=== PATIENT | female | born 1985 | race Caucasian/White ===

== ENCOUNTER 2017-09-23 07:33 | Emergency (ER) | payer OTHER ==
[2017-09-23] MEDS ORDERED: SODIUM CHLORIDE 0.9% 1,000 ML IV ONE (07:56)
[2017-09-23] MEDS ORDERED: MAG HYDROX/AL HYDROX/SIMETH 30 ML UDC PO STA (07:56)
[2017-09-23] MEDS ORDERED: LIDOCAINE VISCOUS 2% 15 ML UDC MM STA (07:57)
--- NOTE | 2017-09-23 07:59 | ED Physician Documentation ---
PD HPI ABD PAIN - Stated complaint Stated Complaint: ABD PX - Chief complaint Chief Complaint: Abd Pain - History obtained from History obtained from: Patient, Family - History of Present Illness Timing - onset: Enter time (1230), Last night Timing - duration: Hours Timing - details: Abrupt onset, Still present Quality: Sharp, Pain Location: Epigastric Improved by: Laying still, Position Worsened by: Breathing, Position, Palpation Associated symptoms: Nausea, Vomiting. No: Fever, Diarrhea, Constipation, Melena, Hematochezia Similar symptoms before: Has not had sx before Recently seen: Not recently seen - Additional information Additional information: 32 y/o previously healthy female has developed epigastric pain last night with nausea and vomiting. She has not had this previously and she denies use of ibuprofen or aleve. She denies any alcohol use. She is somewhat more comfortable if she is leaning forward slightly and she is getting the pain coming in waves. 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 - Present Medications Home Medications: Ambulatory Orders Medication Instructions Recorded Confirmed Ondansetron Odt [Zofran] 4 mg TL Q6H PRN #10 tablet 09/23/17 - Allergies Allergies/Adverse Reactions: Allergies Allergy/AdvReac Type Severity Reaction Status Date / Time ketorolac tromethamine * Allergy Intermediate Itching Verified 09/23/17 07:42 [From Toradol] codeine [Codeine] AdvReac Unknown Emesis Verified 09/23/17 07:42 - Social History Does the pt smoke?: No Smoking Status: Never smoker Does the pt drink ETOH?: No Does the pt have substance abuse?: No - Immunizations Immunizations are current?: Yes - POLST Patient has POLST: No PD ED PE NORMAL - Vitals Vital signs reviewed: Yes (Normal) - General General: Alert and oriented X 3, Well developed/nourished, Other (The patient is leaning forward curled in the position. She appears to be in pain.) - HEENT HEENT: Atraumatic, PERRL, EOMI - Neck Neck: Supple, no meningeal sign - Cardiac Cardiac: RRR, No murmur - Respiratory Respiratory: No respiratory distress, Clear bilaterally - Abdomen Abdomen: Soft, Other (Epigastric tenderness is mild without guarding there is no specific tenderness to either flank and there is no arrest of respiration with palpation of the right upper quadrant.) - Back Back: No CVA TTP, No spinal TTP - Derm Derm: Normal color, Warm and dry, No rash - Extremities Extremities: No deformity, No edema - Neuro Neuro: No motor deficit, No sensory deficit Eye Opening: Spontaneous Motor: Obeys Commands Verbal: Oriented GCS Score: 15 - Psych Psych: Normal mood, Normal affect Results - Vitals Vitals: Vital Signs - 24 hr 09/23/17 09/23/17 09/23/17 07:38 08:23 08:50 Temperature 36.3 C L Heart Rate 82 69 Respiratory 22 16 16 Rate Blood Pressure 99/69 102/67 83/59 L O2 Saturation 99 100 100 Oxygen O2 Source Room air - Labs Labs: Laboratory Tests 09/23/17 09/23/17 09/23/17 07:50 07:50 08:40 WBC 7.3 RBC 5.25 Hgb 15.2 Hct 44.9 MCV 85.6 MCH 29.0 MCHC 33.9 RDW 12.6 Plt Count 236 MPV 8.8 Neut # 6.0 Lymph # 0.8 L [place] # 0.5 Eos # 0.0 Baso # 0.0 Absolute Nucleated RBC 0.00 Nucleated RBC % 0.0 Sodium 139 Potassium 3.8 Chloride 101 Carbon Dioxide 26 Anion Gap 12.0 BUN 15 Creatinine 0.7 Estimated GFR (MDRD) 97 Glucose 93 Calcium 9.6 Total Bilirubin 0.6 AST 24 ALT 32 Alkaline Phosphatase 69 Total Protein 7.6 Albumin 4.6 Globulin 3.0 Albumin/Globulin Ratio 1.5 Lipase 24 Urine Color YELLOW Urine Clarity CLEAR Urine pH 8.5 H Ur Specific [place] 1.010 Urine Protein TRACE Urine Glucose (UA) NEGATIVE Urine Ketones 15 H Urine Occult Blood NEGATIVE Urine Nitrite NEGATIVE Urine Bilirubin NEGATIVE Urine Urobilinogen 0.2 (NORMAL) Ur Leukocyte Esterase NEGATIVE Ur Microscopic Review NOT INDICATED Urine Culture Comments NOT INDICATED Urine HCG, Qual NEGATIVE Procedures - Bedside sono Bedside sono by EMP: With use of bedside ultrasound the gallbladder is imaged it is not specifically tender and there is no obvious stone. PD MEDICAL DECISION MAKING - ED course Complexity details: reviewed old records, reviewed results, re-evaluated patient , considered differential, d/w patient, d/w family ED course: Previously healthy 32-year-old female with acute epigastric pain that is severe and nausea and vomiting has no relief of her pain with use of a GI cocktail. She is subsequently administered Zofran and Dilaudid with relief of pain and she is given a liter of saline. Her studies are unremarkable including a normal white blood cell count normal electrolytes normal lipase normal LFTs. Gallbladder was grossly normal and sonographically non tender on bedside exam. On presentation the patient appeared to have symptoms and findings consistent with pancreatitis and had a normal lipase on laboratory evaluation. She does have a history of a sensitive stomach but is never had symptoms like this previously. I have asked her to have her gallbladder ultrasound should she have recurrent symptoms. Departure - Departure Disposition: 01 Home, Self Care Clinical Impression: Abdominal pain Qualifiers: Abdominal location: epigastric Qualified Code(s): R10.13 - Epigastric pain Instructions: ED Abdominal Pain Unkn Cause Follow-Up: [facility] [Provider Group] [facility] [Provider Group] Prescriptions: Ondansetron Odt [Zofran] 4 mg TL Q6H PRN #10 tablet PRN Reason: Nausea / Vomiting Forms: Activity restrictions
[2017-09-23 08:11] LABS: EOSINOPHILS % (AUTO) 0.5 %; HCT - HEMATOCRIT 44.9 % (37.0-47.0); HGB - HEMOGLOBIN 15.2 g/dL (12.0-16.0); LYMPHOCYTES # (AUTO) 0.8 10^3/uL (1.5-3.5); LYMPHOCYTES % (AUTO) 11.2 %; MEAN CORPUSCULAR HGB CONC 33.9 g/dL (32.0-36.0); MEAN CORPUSCULAR VOLUME 85.6 fL (81.0-99.0); MEAN PLATELET VOLUME 8.8 fL (7.9-10.8); MONOCYTES # (AUTO) 0.5 10^3/uL (0.0-1.0); MONOCYTES % (AUTO) 7.1 %; NEUTROPHILS % (AUTO) 81.2 %; RED BLOOD COUNT 5.25 10^6/uL (4.20-5.40); RED CELL DISTRIBUTION WIDTH 12.6 % (12.0-15.0); UNCORRECTED WHITE BLOOD COUNT 7.3 x10^3/uL; WHITE BLOOD COUNT 7.3 x10^3/uL (4.8-10.8)
[2017-09-23] MEDS ORDERED: LIDOCAINE VISCOUS 2% 15 ML UDC MM ONE (08:13)
[2017-09-23] MEDS ORDERED: MAG HYDROX/AL HYDROX/SIMETH 30 ML UDC ONE (08:13)
[2017-09-23] MEDS ORDERED: HYDROmorphone 1 MG/ML SYRINGE IVP STA (08:19)
[2017-09-23] MEDS ORDERED: ONDANSETRON 4 MG/2 ML VIAL IVP STA (08:19)
[2017-09-23] MEDS ORDERED: ONDANSETRON 4 MG/2 ML VIAL ONE (08:25)
[2017-09-23] MEDS ORDERED: HYDROmorphone 1 MG/ML SYRINGE ONE (08:25)
[2017-09-23 08:27] LABS: ALBUMIN/GLOBULIN RATIO 1.5 (1.0-2.2); BILIRUBIN,TOTAL 0.6 mg/dL (0.2-1.0); CALCIUM 9.6 mg/dL (8.5-10.3); CREATININE 0.7 mg/dL (0.4-1.0); POTASSIUM 3.8 mmol/L (3.5-5.0); TOTAL PROTEIN 7.6 g/dL (6.7-8.2)
[2017-09-23 09:05] LABS: BILIRUBIN,URINE NEGATIVE (NEGATIVE); PH,URINE 8.5 PH (5.0-7.5)
[2017-09-23 09:07] LABS: HCG UR QUAL NEGATIVE; UA CHARGE (STRIP ONLY) YES; UR CULTURE IF IND NOT INDICATED
[2017-09-23 09:36] VITALS: BP 90/60
== END 2017-09-23 09:39 | disposition home or self-care (01) ==
LOC: ED 07:33
DX: R10.13 Epigastric pain (principal)
CPT/HCPCS: 36415; 80053; 81003; 81025; 83690; 85025; 96374; 96375; 99283; 99284; A9270; J1170; 81001; 87086

== ENCOUNTER 2017-12-30 20:42 | Emergency (ER) | payer OTHER ==
[2017-12-30 21:07] LABS: BASOPHILS % (AUTO) 0.3 %; EOSINOPHILS # (AUTO) 0.3 10^3/uL (0.0-0.7); HGB - HEMOGLOBIN 15.4 g/dL (12.0-16.0); LYMPHOCYTES # (AUTO) 1.2 10^3/uL (1.5-3.5); LYMPHOCYTES % (AUTO) 13.3 %; MEAN CORPUSCULAR HEMOGLOBIN 28.5 pg (27.0-31.0); MEAN CORPUSCULAR HGB CONC 32.6 g/dL (32.0-36.0); MEAN CORPUSCULAR VOLUME 87.5 fL (81.0-99.0); MEAN PLATELET VOLUME 8.9 fL (7.9-10.8); MONOCYTES # (AUTO) 0.3 10^3/uL (0.0-1.0); MONOCYTES % (AUTO) 3.8 %; NEUTROPHILS # (AUTO) 6.9 10^3/uL (1.5-6.6); NEUTROPHILS % (AUTO) 79.6 %; PLT - PLATELET COUNT 245 10^3/uL (130-450); RED CELL DISTRIBUTION WIDTH 13.1 % (12.0-15.0); WHITE BLOOD COUNT 8.7 x10^3/uL (4.8-10.8)
[2017-12-30] MEDS ORDERED: HYDROmorphone 1 MG/ML SYRINGE IVP STA ×2 (21:07→22:36)
[2017-12-30] MEDS ORDERED: ONDANSETRON 4 MG/2 ML VIAL IVP STA (21:07)
[2017-12-30 21:10] LABS: BILIRUBIN,URINE NEGATIVE (NEGATIVE); GLUCOSE, URINE (UA) NEGATIVE (NEGATIVE); KETONES,URINE (UA) 15 mg/dL (NEGATIVE); LEUKOCYTE ESTERASE, URINE TRACE (NEGATIVE); NITRITE,URINE NEGATIVE (NEGATIVE); OCCULT BLOOD,URINE NEGATIVE (NEGATIVE); PROTEIN,URINE NEGATIVE (NEGATIVE); UROBILINOGEN,URINE 0.2 (NORMAL) E.U./dL (NORMAL)
--- NOTE | 2017-12-30 21:18 | ED Physician Documentation ---
PD HPI ABD PAIN - Stated complaint Stated Complaint: LOWER ABD PX - Chief complaint Chief Complaint: Abd Pain - History obtained from History obtained from: Patient - History of Present Illness Timing - onset: Other (32-year-old woman with history of endometriosis, 2 C- sections in the past. She had an episode of severe abdominal pain in September. She followed up with her physician and there is a CT scan ordered on Tuesday. The pain recurred around 2 PM today, lower abdomen radiating to the left low back. It is associated with nausea and vomiting and loose stool but not diarrhea. There is no fever. 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 - Present Medications Home Medications: Ambulatory Orders Medication Instructions Recorded Confirmed Ondansetron Odt [Zofran] 4 mg TL Q6H PRN #10 tablet 09/23/17 HYDROcod/ACETAM 5/325 [[place] 5/325] 1 - 2 ea PO Q6H PRN #10 tablet 12/30/17 Ondansetron HCl [Zofran] 4 mg PO Q6H PRN #10 tablet 12/30/17 - Allergies Allergies/Adverse Reactions: Allergies Allergy/AdvReac Type Severity Reaction Status Date / Time ketorolac tromethamine * Allergy Intermediate Itching Verified 12/30/17 21:05 [From Toradol] codeine [Codeine] AdvReac Unknown Emesis Verified 12/30/17 21:05 - Social History Does the pt smoke?: No Smoking Status: Never smoker Does the pt drink ETOH?: No Does the pt have substance abuse?: No - Immunizations Immunizations are current?: Yes - POLST Patient has POLST: No PD ED PE NORMAL - Vitals Vital signs reviewed: Yes - General General: Alert and oriented X 3, No acute distress - Abdomen Abdomen: Normal bowel sounds, Soft, Other (Tender in the left lower quadrant without surgical signs, no guarding or rebound.) - Neuro Neuro: Alert and oriented X 3, Normal speech - Psych Psych: Normal mood, Normal affect Results - Vitals Vitals: Vital Signs - 24 hr 12/30/17 12/30/17 12/30/17 20:48 22:10 22:46 Temperature 36.6 C Heart Rate 95 96 76 Respiratory 18 16 16 Rate Blood Pressure 101/63 109/83 H 85/43 L O2 Saturation 98 100 99 12/30/17 12/30/17 22:54 22:58 Temperature Heart Rate 86 86 Respiratory 18 18 Rate Blood Pressure 102/66 102/70 O2 Saturation 100 99 Oxygen O2 Source Room air - Labs Labs: Laboratory Tests 12/30/17 12/30/17 12/30/17 20:37 20:51 20:51 WBC 8.7 RBC 5.40 Hgb 15.4 Hct 47.3 H MCV 87.5 MCH 28.5 MCHC 32.6 RDW 13.1 Plt Count 245 MPV 8.9 Neut # 6.9 H Lymph # 1.[address] # 0.3 Eos # 0.3 Baso # 0.0 Absolute Nucleated RBC 0.00 Nucleated RBC % 0.0 Sodium 138 Potassium 3.3 L Chloride 102 Carbon Dioxide 28 Anion Gap 8.0 BUN 15 Creatinine 0.8 Estimated GFR (MDRD) 83 L Glucose 84 Calcium 9.2 Total Bilirubin 0.9 AST 25 ALT 27 Alkaline Phosphatase 63 Total Protein 7.8 Albumin 4.8 Globulin 3.0 Albumin/Globulin Ratio 1.6 Lipase 20 L Serum HCG, Qual Urine Color YELLOW Urine Clarity HAZY Urine pH 7.0 Ur Specific [place] 1.015 Urine Protein NEGATIVE Urine Glucose (UA) NEGATIVE Urine Ketones 15 H Urine Occult Blood NEGATIVE Urine Nitrite NEGATIVE Urine Bilirubin NEGATIVE Urine Urobilinogen 0.2 (NORMAL) Ur Leukocyte Esterase TRACE H Urine RBC None Seen Urine WBC 0-3 Ur Squamous Epith Cells MOD Squamous H Urine Bacteria Rare Ur Microscopic Review INDICATED Urine Culture Comments NOT INDICATED Urine HCG, Qual 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 # Eos # Baso # Absolute Nucleated RBC Nucleated RBC % Sodium Potassium Chloride Carbon Dioxide Anion Gap BUN Creatinine Estimated GFR (MDRD) Glucose Calcium Total Bilirubin AST ALT Alkaline Phosphatase Total Protein Albumin Globulin Albumin/Globulin Ratio Lipase Serum HCG, Qual NEGATIVE Urine Color Urine Clarity Urine pH Ur Specific [place] Urine Protein Urine Glucose (UA) Urine Ketones Urine Occult Blood Urine Nitrite Urine Bilirubin Urine Urobilinogen Ur Leukocyte Esterase Urine RBC Urine WBC Ur Squamous Epith Cells Urine Bacteria Ur Microscopic Review Urine Culture Comments Urine HCG, Qual - Rads (name of study) CT A/P Radiology: EMP read contemporaneously (Trace free fluid, dominant left ovarian follicle, 1.8 cm. Mild left adnexal varices, normal appendix, mildly Course focal calcification in the right hepatic lobe.) PD MEDICAL DECISION MAKING - ED course ED course: 32-year-old woman with pelvic pain, seems like ovarian cyst which is seen on CT. Also potentially evidence of pelvic congestion syndrome. Follow-up was advised. Departure - Departure Disposition: Home, Self Care Clinical Impression: Pelvic congestion syndrome Cyst of ovary Qualifiers: Laterality: left Qualified Code(s): N83.202 - Unspecified ovarian cyst, left side Condition: Good Record reviewed to determine appropriate education?: Yes Instructions: ED Cyst Ovarian Follow-Up: [facility] [Provider Group] Prescriptions: HYDROcod/ACETAM 5/325 [[place] 5/325] 1 - 2 ea PO Q6H PRN #10 tablet PRN Reason: Pain Ondansetron HCl [Zofran] 4 mg PO Q6H PRN #10 tablet PRN Reason: Nausea / Vomiting Comments: Take ibuprofen, 400-600 mg every 6 hours as needed as the base pain medication and add the prescription medication to that. Return if worse. Follow-up with the gynecologists, call on Tuesday.
[2017-12-30 21:19] LABS: ALBUMIN 4.8 g/dL (3.2-5.5); ALBUMIN/GLOBULIN RATIO 1.6 (1.0-2.2); BILIRUBIN,TOTAL 0.9 mg/dL (0.2-1.0); CALCIUM 9.2 mg/dL (8.5-10.3); CREATININE 0.8 mg/dL (0.4-1.0); TOTAL PROTEIN 7.8 g/dL (6.7-8.2)
[2017-12-30 21:22] LABS: CLARITY,URINE HAZY (CLEAR)
[2017-12-30 21:33] LABS: BACTERIA,URINE Rare /HPF (None Seen); RBC,URINE None Seen /HPF (0-5); SQUAMOUS EPITHELIAL CELL,UR MOD Squamous (<= Few)
[2017-12-30] MEDS ORDERED: IOPAMIDOL-300 100 ML VIAL ONE (21:33)
[2017-12-30 21:54] LABS: HCG,QUALITATIVE BLOOD NEGATIVE
[2017-12-30] MEDS ORDERED: IOPAMIDOL-300 100 ML VIAL IVP ONE (21:57)
[2017-12-30] MEDS ORDERED: SODIUM CHLORIDE 0.9% 1,000 ML IV ONE (22:51)
--- NOTE | 2017-12-30 23:01 | CT Report ---
EXAM: CT ABDOMEN AND PELVIS EXAM DATE: 12/30/2017 10:07 PM. CLINICAL HISTORY: Left lower quadrant pain COMPARISONS: None. TECHNIQUE: Routine helical CT imaging was performed through the abdomen and pelvis. IV contrast: 100M L ISOVUE 300. Enteric contrast: No. Reconstructions: Coronal and sagittal. In accordance with CT protocol optimization, one or more of the following dose reduction techniques w ere utilized for this exam: automated exposure control, adjustment of mA and/or KV based on patient s ize, or use of iterative reconstructive technique. FINDINGS: Lung bases: No acute findings. Liver: Moderate focal coarse calcification seen in the superior aspect of the right hepatic lobe, unc ertain etiology. Gallbladder: Unremarkable. Pancreas: Unremarkable. Spleen: Unremarkable. Adrenals: Unremarkable. Kidneys: Unremarkable. Bowel: Normal appendix. No acute bowel findings are seen. Pelvis: Uterus is anteverted. Dominant follicle in the left ovary measures 1.8 cm. Trace free fluid i n the posterior cul-de-sac. The bladder is unremarkable. Mild left adnexal varices. Vascular structures: No acute findings. Bones: No acute bone findings. IMPRESSION: 1. Trace free fluid in the posterior cul-de-sac. 2. Dominant follicle in the left ovary measuring 1.8 cm, within normal limits. 3. Mild left adnexal varices. 4. No acute bowel findings are seen. 5. Normal appendix. 6. Moderate focal coarse calcification seen in the superior aspect of the right hepatic lobe, uncerta in etiology. [facility] Referring Provider Line: [phone] SITE ID: [id number]
[2017-12-30] MEDS ORDERED: HYDROcod/ACET 5/325 Prepack 4 PO STA (23:12)
[2017-12-31 00:03] VITALS: BP 106/76
== END 2017-12-31 00:03 | disposition home or self-care (01) ==
LOC: ED 20:42
DX: N94.89 Other specified conditions associated with female genital organs and menstrual cycle (principal); N83.202 Unspecified ovarian cyst, left side; R11.2 Nausea with vomiting, unspecified
CPT/HCPCS: 36415; 74177; 80053; 81001; 81025; 83690; 84703; 85025; 96361; 96374; 96376; 99284; J1170; Q9967; 81003; 87086

== ENCOUNTER 2018-01-02 11:41 | Outpatient (CLI) | payer OTHER | END 2018-01-02 11:42 | disposition home or self-care (01) | LOC: LAB.R 11:41 | PROVIDERS: ATTEND Obstetrics & Gynecology | DX: Z11.3 Encounter for screening for infections with a predominantly sexual mode of transmission (principal); N89.8 Other specified noninflammatory disorders of vagina | CPT/HCPCS: 87480; 87491; 87510; 87591; 87660 ==

== ENCOUNTER 2018-01-02 12:22 | Outpatient (CLI) | payer OTHER ==
[2018-01-02 12:48] LABS: BILIRUBIN,URINE NEGATIVE (NEGATIVE); GLUCOSE, URINE (UA) NEGATIVE (NEGATIVE); KETONES,URINE (UA) TRACE mg/dL (NEGATIVE); LEUKOCYTE ESTERASE, URINE NEGATIVE (NEGATIVE); NITRITE,URINE NEGATIVE (NEGATIVE); OCCULT BLOOD,URINE NEGATIVE (NEGATIVE); PROTEIN,URINE NEGATIVE (NEGATIVE); UROBILINOGEN,URINE 0.2 (NORMAL) E.U./dL (NORMAL)
[2018-01-02 13:21] LABS: BACTERIA,URINE Many /HPF (None Seen); CLARITY,URINE HAZY (CLEAR); RBC,URINE None Seen /HPF (0-5); SQUAMOUS EPITHELIAL CELL,UR MOD Squamous (<= Few)
[2018-01-02 13:22] LABS: MUCUS,URINE Marked Strands
== END 2018-01-02 12:23 | disposition home or self-care (01) ==
LOC: LAB 12:22
PROVIDERS: ATTEND Obstetrics & Gynecology
DX: R10.2 Pelvic and perineal pain (principal); N89.8 Other specified noninflammatory disorders of vagina; Z11.3 Encounter for screening for infections with a predominantly sexual mode of transmission
CPT/HCPCS: 36415; 81001; 85651; 87480; 87491; 87510; 87591; 87660

== ENCOUNTER 2018-02-06 11:19 | Outpatient (CLI) | payer OTHER ==
[2018-02-06 11:44] LABS: BASOPHILS % (AUTO) 0.5 %; EOSINOPHILS % (AUTO) 0.7 %; HGB - HEMOGLOBIN 14.1 g/dL (12.0-16.0); LYMPHOCYTES # (AUTO) 2.5 10^3/uL (1.5-3.5); MEAN CORPUSCULAR HEMOGLOBIN 28.8 pg (27.0-31.0); MEAN CORPUSCULAR HGB CONC 33.4 g/dL (32.0-36.0); MEAN CORPUSCULAR VOLUME 86.3 fL (81.0-99.0); MEAN PLATELET VOLUME 8.7 fL (7.9-10.8); MONOCYTES # (AUTO) 0.4 10^3/uL (0.0-1.0); MONOCYTES % (AUTO) 6.8 %; NEUTROPHILS # (AUTO) 3.2 10^3/uL (1.5-6.6); PLT - PLATELET COUNT 206 10^3/uL (130-450); RED BLOOD COUNT 4.89 10^6/uL (4.20-5.40); RED CELL DISTRIBUTION WIDTH 12.7 % (12.0-15.0); WHITE BLOOD COUNT 6.2 x10^3/uL (4.8-10.8)
[2018-02-06 11:51] LABS: BILIRUBIN,URINE NEGATIVE (NEGATIVE); GLUCOSE, URINE (UA) NEGATIVE (NEGATIVE); KETONES,URINE (UA) NEGATIVE (NEGATIVE); LEUKOCYTE ESTERASE, URINE NEGATIVE (NEGATIVE); NITRITE,URINE NEGATIVE (NEGATIVE); OCCULT BLOOD,URINE NEGATIVE (NEGATIVE); PROTEIN,URINE NEGATIVE (NEGATIVE); UROBILINOGEN,URINE 0.2 (NORMAL) E.U./dL (NORMAL)
[2018-02-06 11:55] LABS: CLARITY,URINE CLEAR (CLEAR); HCG UR QUAL NEGATIVE
== END 2018-02-06 11:20 | disposition home or self-care (01) ==
LOC: LAB 11:19
PROVIDERS: ATTEND Obstetrics & Gynecology
DX: Z01.812 Encounter for preprocedural laboratory examination (principal); N80.9 Endometriosis, unspecified; R10.2 Pelvic and perineal pain; G89.29 Other chronic pain
CPT/HCPCS: 36415; 81003; 81025; 85025; 86850; 86900; 86901

== ENCOUNTER 2018-02-08 05:59 | Inpatient (IN) | payer OTHER ==
--- NOTE | 2018-02-01 11:16 | PREOP HISTORY & PHYSICAL ---
DATE OF SERVICE: 02/08/2018 Physician: Hong Price MD PREOPERATIVE H&P 01/26/2018 FOR PROPOSED DATE OF SURGERY OF 02/08/2018. DIAGNOSES 1. Chronic lower quadrant pain, predominantly right-sided. 2. Biopsy proven endometriosis. 3. Scar pain (History of prior endometriosis nodules embedded in abdominal scar ). INTENDED PROCEDURE 1. Total abdominal hysterectomy with bilateral salpingectomy. 2. Scar revision/excision of endometriosis. 3. Possible oophorectomy. 4. Cystoscopy. HISTORY OF PRESENT ILLNESS: Patient is a 32-year-old , 3, para 3-0-0-3, ( section x3) woman who complains of persistent left lower quadrant pain and associated pelvic pain. She reports a pain level to be level 7/10 when it is crescendoing , but mid cycle 3 to 5/10. It manifests itself as a dull ache that evolves to a sharp pain and spasm that radiates to the left lower quadrant and lumbar spine. The pain is interfering with her daily activities. She does have a grade 6 or greater over 10 pain with intercourse. She has used NSAIDs, heat, stretching without adequate relief. She underwent 2 sections, one in 2006 that was emergent. In 2011, she underwent a repeat section with Dr. Medina. She began developing pain particularly in the scar and had a nodular growth there. She underwent exploration and excision of the scar in 2013 in which nodular endometriosis was found. She continues to have scar pain and physical activity such as twisting intensifies this. She has never had any back injury, STD. She describes her menstrual periods as heavy and lasting up to 8 days with severe dysmenorrhea. Patient has been labeled as irritable bowel syndrome in the past. She also had bouts of bulimia. She has never undergone EGD or colonoscopy. She has never had any blood in her stool. She does have constipation and loose bowel movements. In terms of bladder pain, she has no significant bladder pain or incontinence. She rarely has urgency or dysuria. She has no signs or symptoms of prolapse. She does not report any urinary incontinence. Her last menstrual period was 12/21/2017. Her menses are regular every 28 days plus or minus 2 days. She saturates her tampons and pad every 4 hours. Current mode of contraception is vasectomy. Patient's last Pap smear was in 2012 and normal. PAST MEDICAL HISTORY: Patient has had problems in the past with anxiety and depression. Currently patient is not interested in an antidepressants. Patient does not report any chronic disease history. PAST SURGICAL HISTORY: sections x2. Exploratory surgery with excision of endometriosis. ALLERGIES 1. SENSITIVE TO TORADOL. 2. SENSITIVE TO CODEINE, MOSTLY NAUSEA. CURRENT MEDICATIONS: NSAIDs. REVIEW OF SYSTEMS CONSTITUTIONAL: Negative. HEENT: Negative. CARDIOVASCULAR: Negative. RESPIRATORY: Negative. GASTROINTESTINAL: Negative except for diarrhea and constipation. GENITOURINARY: Reference HPI. MUSCULOSKELETAL: Negative. DERMATOLOGIC: Negative. BREASTS: No masses found on self exam. NEUROLOGIC: Negative. PSYCHOLOGIC: Anxiety as noted before. FAMILY HISTORY: Breast cancer paternal grandmother, leukemia paternal grandfather, skin cancer paternal grandmother, diabetes paternal aunt, depression negative, CAD negative , hypertension negative, stroke negative. 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 . No marital discord. Consumes no coffee, occasionally smokes 1-2 cigarettes. PHYSICAL EXAMINATION GENERAL: Well groomed, pleasant. VITAL SIGNS: Posted. HEENT: Supple neck . No thyromegaly. Good dentition. LUNGS: Clear to auscultation in all quadrants. CARDIOVASCULAR: Regular, no murmur, no gallop. BREASTS: Breasts deferred. ABDOMEN: Pfannenstiel scar noted, tender to manipulation, somewhat thickened band. Left lower quadrant tenderness without rebound. Mild right lower quadrant tenderness. No CVA tenderness. GENITALIA: External genitalia with no lesions. VAGINA: No prolapse, no blood or discharge. CERVIX: Cervical motion tenderness. UTERUS: Enlarged slightly to 6 weeks, tender. ADNEXAL: Left adnexa tender, cannot distinctly feel ovary, may be fixed; right ovary normal. EXTREMITIES: Nonedematous. MUSCULOSKELETAL: Good range of motion. No joint tenderness. SKIN: No overt lesions. NEUROLOGIC: Grossly intact. STUDIES: Preoperative labs pending. ASSESSMENT: Patient has had diagnosis of endometriosis established by prior surgery. Her pelvic pain and scar pain have been steadily worsening. In fact, she has a history of nodular endometriosis in her laparotomy scar that has been previously excised. Suspect reoccurrence of endometriosis. The pelvic pain has progressed to a point that it interferes with her ability to function and enjoy her intimate life with her . She is an appropriate hysterectomy candidate, and excision of scar is indicated as well. PLAN: Total abdominal hysterectomy and excision of laparotomy scar. We reviewed risks and benefits of surgery. She is aware there is blood loss, transfusion, infection, and unintentional damage to urinary tract and/or intestines. She is also cautioned that hysterectomy is not a guarantee of relief of pain and may create pain issues by virtue of the surgery. Anticipate that this surgery will entail adhesions. Given her numerous prior sections, abdominal approach is safest. Abdominal approach will also enable us to remove any endometriosis residuals still in her laparotomy scar. She is instructed that this is not a cosmetic procedure and that, if she wants cosmesis, she should consult a plastic surgeon for her scar revision.. TD: 01/26/2018 16:13 ESSENCE
[2018-02-08] MEDS ORDERED: ceFAZolin 2 GM/50 ML 2 GM/50 ML BAG IV ONE (06:40)
[2018-02-08] MEDS ORDERED: SCOPOLAMINE PATCH TOP ONE (06:50)
[2018-02-08] MEDS ORDERED: LACTATED RINGERS 1,000 ML IV ONE ×2 (06:59→11:20)
[2018-02-08] MEDS ORDERED: LIDOCAINE-MPF 2% 5 ML VIAL IM ONE (08:15)
[2018-02-08] MEDS ORDERED: GLYCOPYRROLATE 1 MG/5 ML VIAL IVP ONE (08:15)
[2018-02-08] MEDS ORDERED: NEOSTIGMINE 1 MG/1 ML 10 ML MDV IVP ONE (08:15)
[2018-02-08] MEDS ORDERED: ROCURONIUM 50 MG/5 ML VIAL IVP ONE (08:15)
[2018-02-08] MEDS ORDERED: ONDANSETRON 4 MG/2 ML VIAL IVP ONE (08:15)
[2018-02-08] MEDS ORDERED: ACETAMINOPHEN 1,000 MG/100 ML 100 ML IV ONE (08:15)
[2018-02-08] MEDS ORDERED: MIDAZOLAM 2 MG/2 ML VIAL IVP ONE (08:15)
[2018-02-08] MEDS ORDERED: DEXAMETHASONE 4 MG/ML VIAL IVP ONE (08:15)
[2018-02-08] MEDS ORDERED: PHENYLEPHRINE 10 MG/ML VIAL IV ONE (08:15)
[2018-02-08] MEDS ORDERED: fentaNYL 250 MCG/5 ML VIAL IVP ONE (08:15)
[2018-02-08] MEDS ORDERED: PROPOFOL 200 MG/20 ML VIAL IVP ONE (08:15)
[2018-02-08] MEDS ORDERED: BUPIVACAINE 0.5%-EPI 1:200000 PF 30 ML VIAL SUBQ ONE ×2 (09:28)
[2018-02-08] MEDS ORDERED: BUPIVACAINE 0.5%-EPI 1:200000 PF 30 ML VIAL ONE ×2 (09:34→10:03)
[2018-02-08] MEDS ORDERED: HYDROmorphone 0.5 MG/0.5 ML SYRINGE ONE ×3 (10:41→11:23)
[2018-02-08] MEDS ORDERED: ONDANSETRON 4 MG/2 ML VIAL IVP PRN (10:54)
[2018-02-08] MEDS ORDERED: ZOLPIDEM 5 MG TABLET PO PRN (10:54)
[2018-02-08] MEDS ORDERED: ACETAMINOPHEN 500 MG TABLET PO SCH (11:00)
--- NOTE | 2018-02-08 11:03 | OPERATIVE REPORT ---
Operative Report - General Admit Date: 02/08/18 - Procedure Note Primary Surgeon: Hong Price MD Secondary Surgeon: Hong Pascal MD Anesthesia Provider: Schuyler Salazar, certified nurse chef under Anesthesia Technique: General ET tube Pathology: Uterus and tubes, peritoneal specimens IV Fluids (mL): 900 Estimated Blood Loss (mL): 150 Urine Output (mL): 200 Drain/Tube Type: Other (Wound VAC in place, Jensen catheter) Complications: None
[2018-02-08] MEDS: oxyCODONE 5 MG TABLET PO PRN (11:39)
[2018-02-08] MEDS: LACTATED RINGERS 1,000 ML IV SCH ×2 (11:40→17:35)
--- NOTE | 2018-02-08 12:03 | OPERATIVE REPORT ---
DATE OF SERVICE: 02/08/2018 Physician: Hong Price MD PREOPERATIVE DIAGNOSES 1. Bilateral lower quadrant abdominal pain, Predominantly right-sided. 2. History of prior endometriosis nodules in section scar. 3. Scar & Pelvic pain. POSTOPERATIVE DIAGNOSES 1. Bilateral lower quadrant abdominal pain, Predominantly right-sided. 2. History of prior endometriosis nodules in section scar. 3. Scar & Pelvic pain. 5. Await pathology results. 6. Pelvic congestion syndrome. NAME OF PROCEDURE: Abdominal hysterectomy (subtotal), Morales Culdoplasty procedure; bilateral salpingectomies; excision of peritoneum, bilateral ovariopexy. SURGEON: Hong Price MD, FACOG, FICS TREATER: Hong Camejo MD, FACOG ANESTHESIOLOGIST: Schuyler Salazar, Certified Nurse Planogrammer ANESTHESIA: General with ET tube, Marcaine 0.5% with epinephrine 30 cc local Into the wound SPECIMENS 1. Suspect for endometriosis. 2. Lysis of minor anterior compartment and tubal adhesions. ESTIMATED BLOOD LOSS: 150. COMPLICATIONS: None. TOTAL FLUIDS: 900. URINE OUTPUT: 200 clear. FINDINGS: Exam under anesthesia finds the uterus somewhat fixed and retroverted. There is fullness in the left adnexa. The scar is stenotic with a 1 cm nodular mass palpable approximately 2 cm superior to the left lateral margin. At the time of hysterectomy, there were bladder adhesions and minor tubal adhesions as expected. Near one of the tubes there was a small, brown portion of tissue that may be endometriosis. This was excised. Ovaries appeared to be normal. The right ovary had a recent corpus luteum. Cul-de-sac was clear of endometriosis. There was no involvement of the cecum or appendix. TECHNIQUE: Prior to this surgery, I discussed the diagnosis and previous findings, as well as the indications for hysterectomy. Patient expressed that she would like preservation of Her pelvic support if at all possible by means of subtotal hysterectomy. She desires preservation of at least 1 ovary preserved. We have reviewed the risks and benefits of surgery. She was cautioned that surgery for pain often does not completely relieve the pain, but replace it with postoperative pain. Again, it was emphasized that excision of her scar and possible endometriosis thereof is not a cosmetic procedure and if she desires a cosmetic effect, she should consult a plastic surgeon. Patient was brought to the operating room and placed on the table in the supine position. She was uneventfully induced and intubated. She was moved to the low dorsal lithotomy position on mobile [facility]. She was prepped and draped in a customary sterile fashion, inclusive of Jensen. Exam under anesthesia was done. Timeout briefing was done per protocol. The scar was palpated and the noted nodule was identified. The scar was removed with a large Semi-lunar incision That encompassed the scar and nodule. The extent of the incision was carried laterally toward the iliac crest to facilitate closure. The dissection was carried down to the fascial level and removed the tissue en bloc to hopefully capture any residual endometriosis. The abdominal wall was then uneventfully opened in layers with a Pfannenstiel type incision. The internal contents were assessed. An O'Benjie-O'Day retractor was placed. The abdominal contents were packed superiorly. Two Kochers were placed on the cornual regions of the uterus for mobilization. Using the LigaSure, starting on the left-hand side, the tube was divided away from the mesentery. Then, the utero-ovarian ligament and round ligament was desiccated and divided. Bladder flap and broad ligament dissection was done with LigaSure. There were large vessels in the adnexa and around the uterus, showing pelvic congestion syndrome. The uterine vessels were identified and desiccated. Next, this procedure was uneventfully completed on the left-hand side, once again using the LigaSure. The cervical barrel was circumscribed with an electrocautery pencil and the uterus removed in toto, sparing the cervix. The endocervical canal was then cauterized with monopolar cautery. The top of the cervix was then imbricated with multiple interrupted stitches of 2-0 Vicryl. The uterosacral ligaments were then captured and brought together in the midline to provide more support in a Morales plication. The pelvic peritoneum was then sutured to cover the cervical barrel, and the abdominal procedure completed. We lavaged the abdomen with normal sterile water and ensured there was no bleeding. The ovaries were hanging perilously close to the cervix. They were in turn plicated to the round ligaments to provide suspension. All instruments, retractors, and sponges were removed from the abdomen. The peritoneum was closed with a running stitch of 2-0 chromic. The rectus muscles were reapproximated in the midline with interrupted stitches of 2-0 Vicryl. Fascial closure was with multiple interrupted stitches of 0 Vicryl. The subcutaneous space was closed with interrupted stitches of 2-0 chromic. The superior portion of the wound was closed with a running subcutaneous stitch of 2-0 Vicryl. The skin was closed with a running subcuticular stitch of 4-0 Monocryl. A wound VAC device was successfully placed. At the end of the case, all sponge, needle and instrument counts were confirmed as correct. Patient was uneventfully aroused from general anesthesia and went to the recovery room in good condition. MEDICATIONS: 2 grams of Ancef. TD: 02/08/2018 12:00 ESSECNE
[2018-02-08] MEDS: LORazepam 2 MG/ML VIAL IVP PRN (13:38)
[2018-02-08] MEDS ORDERED: SODIUM CHLORIDE FLUSH 0.9% 10 ML SYRINGE ONE ×2 (14:15→22:16)
[2018-02-08] MEDS ORDERED: SODIUM CHLORIDE 0.9% 1,000 ML IV ONE (16:22)
[2018-02-08] MEDS: ONDANSETRON 4 MG/2 ML VIAL IVP PRN ×2 (16:31→22:13)
[2018-02-08] MEDS: ACETAMINOPHEN 500 MG TABLET PO SCH ×2 (17:02→23:39)
[2018-02-08] MEDS: IBUPROFEN 600 MG TABLET PO SCH ×2 (17:08→23:40)
[2018-02-08] MEDS: HYDROmorphone 1 MG/ML CARPUJECT IVP PRN ×2 (17:09→22:13)
--- NOTE | 2018-02-08 17:16 | PROVIDER PROGRESS NOTE ---
Subjective - General Admit Date: 02/08/18 Procedure Date: 02/08/18 Post Op Days: 0 Procedure Performed: Subtotal hyst, Morales Culdoplasty, bilat salpingectomy, bilat ovariopexy - Review of Systems Wound/Incisions: positive: Dressing dry and intact (Asked by nursing to see the patient. Wound vac continuing to suction.) Objective - Patient Data Vital Signs: Vital Signs x48h Temp Pulse Resp BP Pulse Ox 02/08/18 16:22 98.1 F 60 18 88/47 L 99 02/08/18 13:24 65 14 103/68 98 02/08/18 12:35 54 L 12 94/62 99 02/08/18 12:20 68 14 94/57 L 92 02/08/18 12:00 88 16 112/63 02/08/18 11:30 97.3 F L 56 L 16 100/69 100 02/08/18 11:15 98 02/08/18 11:10 99 02/08/18 11:05 100 02/08/18 11:00 98 02/08/18 10:55 98 02/08/18 10:50 99 02/08/18 10:45 100 02/08/18 10:40 100 02/08/18 10:35 100 02/08/18 10:30 100 02/08/18 10:25 99 02/08/18 10:20 100 Weight: Weight 02/06/18 02/07/18 02/08/18 23:59 23:59 23:59 Weight (kg) 67 kg Intake & Output: Intake and Output Totals x24h 02/06/18 02/07/18 02/08/18 23:59 23:59 23:59 Intake Total 300 Output Total 350 Balance -50 - Current Medications Current Medications: Current Medications Generic Name Dose Route Start Last Admin Trade Name Freq PRN Reason Stop Dose Admin Acetaminophen 1,000 mg 02/08/18 16:00 02/08/18 17:02 Tylenol PO Not Given Q8H JATIN Hydromorphone HCl 1 mg 02/08/18 13:50 02/08/18 17:09 Dilaudid Inj Carp IVP 1 mg Q2HR PRN Administration Severe Pain Lactated Ringer's 1,000 mls @ 100 mls/hr 02/08/18 11:00 02/08/18 11:40 Lr IV 100 mls/hr .Q10H JATIN Administration Sodium Chloride 1,000 mls @ 999 mls/hr 02/08/18 16:22 02/08/18 16:30 Normal Saline 0.9% IV 02/08/18 17:22 999 mls/hr ONCE ONE Administration Ibuprofen 600 mg 02/08/18 18:00 02/08/18 17:08 Motrin PO 600 mg Q6HR JATIN Administration Lorazepam 2 mg 02/08/18 10:54 02/08/18 13:38 Ativan Inj (Vial) IVP 2 mg Q3H PRN Administration Anxiety Ondansetron HCl 8 mg 02/08/18 16:17 02/08/18 16:31 Zofran Inj IVP 02/12/18 10:53 8 mg Q6H PRN Administration Nausea / Vomiting Oxycodone HCl 5 mg 02/08/18 10:54 02/08/18 11:39 Roxicodone PO 5 mg Q4HR PRN Administration PAIN - Physical Exam Wound/Incisions: positive: Dressing dry and intact (Customizable Prevena wound vac on incision. Partial suction. Customizable wound vac removed, and Peel and Place Prevena wound vac applied. Wound vac working well now.) Impression/Plan - Problem List Problem List: 32 yo S/p subtotal hysterectomy, Morales Culdoplasty, bilateral salpingectomy, excision of peritoneum and bilateral ovariopexy 02/08/2018 Customizable Prevena wound vac with a leak Wound vac replaced with a Peel and Place Prevena wound vac Wound vac working well now
[2018-02-08] MEDS ORDERED: PROMETHAZINE 25 MG/1 ML VIAL IM PRN (20:15)
[2018-02-08] MEDS ORDERED: SIMETHICONE CHEW 80 MG TABLET PO PRN (20:16)
[2018-02-09] MEDS: LACTATED RINGERS 1,000 ML IV SCH (02:39)
[2018-02-09] MEDS: oxyCODONE 5 MG TABLET PO PRN ×4 (02:44→16:43)
[2018-02-09 05:36] LABS: BASOPHILS % (AUTO) 0.3 %; EOSINOPHILS % (AUTO) 0.2 %; HGB - HEMOGLOBIN 11.7 g/dL (12.0-16.0); LYMPHOCYTES # (AUTO) 2.9 10^3/uL (1.5-3.5); LYMPHOCYTES % (AUTO) 21.8 %; MEAN CORPUSCULAR HEMOGLOBIN 28.2 pg (27.0-31.0); MEAN CORPUSCULAR VOLUME 87.9 fL (81.0-99.0); MEAN PLATELET VOLUME 9.3 fL (7.9-10.8); MONOCYTES # (AUTO) 1.1 10^3/uL (0.0-1.0); MONOCYTES % (AUTO) 8.2 %; NEUTROPHILS # (AUTO) 9.1 10^3/uL (1.5-6.6); NEUTROPHILS % (AUTO) 69.5 %; PLT - PLATELET COUNT 174 10^3/uL (130-450); RED BLOOD COUNT 4.15 10^6/uL (4.20-5.40); RED CELL DISTRIBUTION WIDTH 12.9 % (12.0-15.0); WHITE BLOOD COUNT 13.1 x10^3/uL (4.8-10.8)
[2018-02-09] MEDS: IBUPROFEN 600 MG TABLET PO SCH ×4 (06:34→23:50)
[2018-02-09] MEDS: ACETAMINOPHEN 500 MG TABLET PO SCH ×3 (08:00→23:51)
[2018-02-09] MEDS ORDERED: MAGNESIUM HYDROXIDE 2,400 MG/30 ML UDC PO PRN (12:21)
--- NOTE | 2018-02-09 12:27 | PROVIDER PROGRESS NOTE ---
Subjective - General Admit Date: 02/08/18 Procedure Date: 02/08/18 Post Op Days: 1 Procedure Performed: Subtotal hyst, Morales Culdoplasty, bilat salpingectomy, bilat ovariopexy - Review of Systems Wound/Incisions: positive: Dressing dry and intact (Customizable Prevena wound vac on incision. Partial suction. Customizable wound vac removed, and Peel and Place Prevena wound vac applied. Wound vac working well now.), No drainage Drain Type: Wound VAC Drain Output Description: Scant output General: positive: No symptoms, Appetite (Appetite returning, tolerating solid foods and liquids) HEENT: positive: No symptoms Pulmonary: positive: No symptoms Cardiovascular: positive: No symptoms Gastrointestinal: positive: No symptoms, Flatus (No reported flatus as of yet or bowel movement) Genitourinary: positive: No symptoms, Dysuria (Patient uncertain but possible dysuria) Musculoskeletal: positive: No symptoms Skin: positive: No symptoms Psychiatric: positive: Anxiety (Patient had anxiety yesterday afternoon but this is resolved) - Other Other Information/Narrative: Julisa is a 32-year-old woman with a history of endometriosis who underwent a subtotal hysterectomy, bilateral salpingectomy and Morales's procedure yesterday. At the time of surgery there were scars and adhesions but no classic endometriosis. Immediately postop she became painful and anxious. Combination of Xanax and hydrocodone made her very sleepy and also decreased her blood pressure to 80/50. Despite the drop, she remained stable. And actually a went to the commode to urinate. Further doses of Xanax and Dilaudid were placed on hold. Today she feels much better and is alert Sitting upright in bed and is walked about her room. She does not express any feelings of anxiety. Objective - Patient Data Vital Signs: Vital Signs x48h Temp Pulse Resp BP Pulse Ox 02/09/18 08:00 98.1 F 62 16 98/59 L 99 Weight: Weight 02/07/18 02/08/18 02/09/18 23:59 23:59 23:59 Weight (kg) 67 kg Intake & Output: Intake and Output Totals x24h 02/07/18 02/08/18 02/09/18 23:59 23:59 23:59 Intake Total 2081.735 5187.667 Output Total 350 1200 Balance 1541.667 -173.333 - Lab Results Lab Results: 02/09/18 05:20 Other Lab Results: Lab Results x24hrs 02/09/18 Range/Units 05:20 WBC 13.1 H (4.8-10.8) x10^3/uL RBC 4.15 L (4.20-5.40) 10^6/uL Hgb 11.7 L (12.0-16.0) g/dL Hct 36.4 L (37.0-47.0) % MCV 87.9 (81.0-99.0) fL MCH 28.2 (27.0-31.0) pg MCHC 32.0 (32.0-36.0) g/dL RDW 12.9 (12.0-15.0) % Plt Count 174 (130-450) 10^3/uL MPV 9.3 (7.9-10.8) fL Neut # 9.1 H (1.5-6.6) 10^3/uL Lymph # 2.9 (1.5-3.5) 10^3/uL Cocke # 1.1 H (0.0-1.0) 10^3/uL Eos # 0.0 (0.0-0.7) 10^3/uL Baso # 0.0 (0.0-0.1) 10^3/uL Absolute Nucleated RBC 0.00 x10^3/uL Nucleated RBC % 0.0 /100WBC - Current Medications Current Medications: Current Medications Generic Name Dose Route Start Last Admin Trade Name Freq PRN Reason Stop Dose Admin Acetaminophen 1,000 mg 02/08/18 16:00 02/09/18 08:00 Tylenol PO 1,000 mg Q8H JATIN Administration Hydromorphone HCl 1 mg 02/08/18 13:50 02/08/18 22:13 Dilaudid Inj Carp IVP 1 mg Q2HR PRN Administration Severe Pain Lactated Ringer's 1,000 mls @ 100 mls/hr 02/08/18 11:00 02/09/18 02:39 Lr IV 100 mls/hr .Q10H JATIN Administration Ibuprofen 600 mg 02/08/18 18:00 02/09/18 11:49 Motrin PO 600 mg Q6HR JATIN Administration Lorazepam 2 mg 02/08/18 10:54 02/08/18 13:38 Ativan Inj (Vial) IVP 2 mg Q3H PRN Administration Anxiety Ondansetron HCl 8 mg 02/08/18 16:17 02/08/18 22:13 Zofran Inj IVP 02/12/18 10:53 8 mg Q6H PRN Administration Nausea / Vomiting Oxycodone HCl 5 mg 02/08/18 10:54 02/09/18 07:59 Roxicodone PO 5 mg Q4HR PRN Administration PAIN Physical Exam - Physical Exam General: positive: No acute distress, Alert HEENT: positive: Moist mucous membranes Neck: positive: Supple w/out meningeal sx Cardiac: positive: Regular Rate Resipratory: positive: Clear to ausultation john Abdomen: positive: Tender to palpation (No inappropriate tenderness for postsurgical patient), Other (Wound VAC functional) Female : positive: Normal external, Other (No reported vaginal discharge or bleeding) Skin: positive: Warm and dry Neurologic: positive: Alert and Oriented X 3, Normal reflexes, Normal Sensation , Normal Speech Assessment/Plan - Assessment/Plan Assessment: Immediately postoperatively patient had reported pain and became anxious. She did not receive the usual Toradol during the procedure because of allergies. Instead Dilaudid hydrocodone and Xanax were used. Patient became somewhat oversedated and dropped her blood pressure but remains stable. Currently she is on Motrin and her pain is in control. She is regaining GI function slowly. Her oral intake is sufficient enough to Hep-Lock her IV fluids. Plan: PLAN * Hep-Lock IV fluid * Begin bowel protocol * Ambulate and become more active
[2018-02-09] MEDS ORDERED: LACTULOSE 10 GM /15 ML UDC PO SCH (13:00)
--- NOTE | 2018-02-09 14:18 | DISCHARGE SUMMARY ---
Physician: Hong Price MD DATE OF ADMISSION: 02/08/2018 DATE OF DISCHARGE: 02/10/2018 DIAGNOSES 1. Chronic lower quadrant pain, predominantly right-sided. 2. Biopsy proven endometriosis. 3. Scar pain (history of prior endometriosis nodules imbedded in her section scars). 4. Pelvic adhesions. 5. Associated pelvic pain. 6. Await Pathology PROCEDURE 1. Subtotal abdominal hysterectomy with bilateral salpingectomy. 2. Revision of scar. 3. Adhesiolysis. 4. Morales's procedure. COMPLICATIONS: None. HISTORY: Patient is a 32-year-old , 3, para 3-0-0-3 ( section x3) woman who complains of persistent left lower quadrant pain and associated pelvic pain. At times, her pain level crescendos to a 7/10, but most times is 3-5/10. She reports associated scar pain with movement. She had underwent a prior scar excision that had a nodular growth that proved to be endometriosis. Preop physical examination shows a tender Pfannenstiel scar with a nodular growth in the left hand margin above that scar approximately 2 cm. The uterus is enlarged to 6 weeks and very tender. Left adnexa was tender as well. Reference my typewritten H and P. HOSPITAL COURSE: The patient was admitted for surgery. She underwent a subtotal hysterectomy with bilateral salpingectomy, scar revision, and Morales's procedure. Procedure was done under general anesthesia without complication. Total blood loss was 50 mL. At the time of surgery, there were adhesions between the uterus and bladder, as well as some minor adhesions around the tubes themselves. There is a question of endometriosis on the left tube, which was excised. Await pathology. The patient went to the recovery room in good condition. After recovery the patient complained of pain and she had received Dilaudid, hydrocodone, Tylenol and due to a mounting anxiety, Xanax. The combination sedated her. Her blood pressure dropped to 80/50, but she remained stable. Further Xanax and Dilaudid and hydrocodone were held. She began Motrin 600 mg q. 6 hours. She slept well and woke refreshed. On postop day 1, she gradually regained self-care activity and tolerated both solids and liquids. By the end of the day, we were able to cap her IV. Her GI function was somewhat slow to return and therefore lactulose and Milk of Magnesia were given. Postoperative day 2, the patient recovered well and was able to self-care, toilet, and her pain was in control. Bowel protocol was used to promote GI motility. Wound care / wound vac and followup instructions were given. The patient understands that she must return on Tuesday to have the wound VAC removed. DISCHARGE MEDICATIONS 1. Motrin 600 mg q. 6 hours. 2. Hydrocodone 5 mg every 4 hours p.r.n. breakthrough pain. 3. Colace 250 mg twice a day. Follow up in 1 week and then again in 1 month. TD: 02/09/2018 14:17 ESSENCE
[2018-02-09] MEDS ORDERED: SODIUM CHLORIDE FLUSH 0.9% 10 ML SYRINGE ONE ×3 (18:49→23:56)
[2018-02-09] MEDS: LORazepam 2 MG/ML VIAL IVP PRN (22:40)
[2018-02-09] MEDS ORDERED: LORazepam 2 MG/ML VIAL ONE (22:41)
[2018-02-09] MEDS: ONDANSETRON 4 MG/2 ML VIAL IVP PRN (23:51)
[2018-02-10] MEDS: IBUPROFEN 600 MG TABLET PO SCH ×2 (05:32→12:11)
[2018-02-10] MEDS: oxyCODONE 5 MG TABLET PO PRN (06:00)
[2018-02-10 08:04] VITALS: BP 102/55
--- NOTE | 2018-02-10 08:53 | Discharge Plan ---
Discharge Plan Disposition: 01 Home, Self Care Condition: Good Diet: Regular Activity Restrictions: Activity as Tolerated Shower Restrictions: No (Keep Wound Vac Dry) Driving Restrictions: No Weight Bearing: Full Weight No Smoking: If you smoke, Please STOP! Call for help. Follow-up with: Irma Timmons ARNP [Primary Care Provider] -
[2018-02-10] MEDS: ACETAMINOPHEN 500 MG TABLET PO SCH (08:54)
[2018-02-10] MEDS ORDERED: BISACODYL 10 MG SUPP PR SCH (08:58)
[2018-02-10] MEDS ORDERED: POLYETHYLENE GLYCOL 3350 17 GM PACKET PO SCH (09:00)
[2018-02-10] MEDS ORDERED: DOCUSATE SODIUM 250 MG CAPSULE PO SCH (09:00)
[2018-02-10] MEDS ORDERED: SENNA 8.6 MG TABLET PO SCH (09:00)
[2018-02-10] MEDS ORDERED: MAGNESIUM HYDROXIDE 2,400 MG/30 ML UDC PO PRN (12:49)
[2018-02-10] MEDS: HYDROmorphone 1 MG/ML CARPUJECT IVP PRN (12:53)
[2018-02-10] MEDS ORDERED: SODIUM CHLORIDE FLUSH 0.9% 10 ML SYRINGE ONE (13:00)
== END 2018-02-10 13:41 | disposition home or self-care (01) | DRG 743 ==
LOC: INTOOBSV 05:59 → OBS 05:59 → OBSVTOIN 10:00 → MS2 19:34
PROVIDERS: ADMIT Obstetrics & Gynecology; ATTEND Obstetrics & Gynecology
PROC: 0UT70ZZ Resection of Bilateral Fallopian Tubes, Open Approach (ICD-10-PCS; 2018-02-08)
PROC: 0US Female Reproductive System, Reposition (ICD-10-PCS; 2018-02-08)
PROC: 0US20ZZ Reposition Bilateral Ovaries, Open Approach (ICD-10-PCS; 2018-02-08)
PROC: 0UT90ZL Resection of Uterus, Supracervical, Open Approach (ICD-10-PCS; principal; 2018-02-08 07:30)
DX: N80.9 Endometriosis, unspecified (principal); G89.29 Other chronic pain; L90.5 Scar conditions and fibrosis of skin; N94.10 Unspecified dyspareunia; N94.89 Other specified conditions associated with female genital organs and menstrual cycle; N73.6 Female pelvic peritoneal adhesions (postinfective); N94.6 Dysmenorrhea, unspecified; K58.2 Mixed irritable bowel syndrome; F41.9 Anxiety disorder, unspecified; Z79.1 Long term (current) use of non-steroidal anti-inflammatories (NSAID); Z86.59 Personal history of other mental and behavioral disorders; Z72.0 Tobacco use; Z88.6 Allergy status to analgesic agent; Z98.891 History of uterine scar from previous surgery
CPT/HCPCS: 36415; 85025; 88108; 88305; 88307

== ENCOUNTER 2021-03-25 19:02 | Emergency (ER) | payer SELFPAY ==
--- OUTSIDE RECORDS SUMMARY | 2021-03-25 19:05 | EXTERNAL MEDICAL SUMMARY RPT | Continuity of Care Document ---
:1985 Demographics Phone Unavailable Preferred Language Unknown Marital Status Unknown Mandaeism Affiliation Unknown Race Unknown Ethnic Group Unknown Author Organization [facility] Address [address] [phone] Phone Care Team Providers Name Role Phone PA-C Unavailable Unavailable Allergies Encounters Medications Problems date description facility [id number] Unspecified abdominal pain [facility] [id number] Tobacco smoking status [facility] [phone] Exercise [facility] [phone] Details of drug misuse behavior [facility] [phone] Acute abdominal pain [facility] [id number] Abdominal pain, unspecified site [facility] Results Vital Signs date measurement value source [id number] weight_standard 143.8 lb [id number] weight_metric 65.23 kg 20210325 temperature_standard 98.2 F [id number] temperature_metric 36.78 C 20210325 respiration_rate 14 /min [id number] heart_rate 98 /min [id number] heart_rate 76 /min 16666164 heart_rate 69 /min 04839021 heart_rate 63 /min 20210325 BP_systolic 99 mm[Hg] 48087411 BP_systolic 90 mm[Hg] 50645574 BP_systolic 102 mm[Hg] 54912876 BP_diastolic 72 mm[Hg] 85339383 BP_diastolic 70 mm[Hg] 98316882 BP_diastolic 63 mm[Hg]
--- OUTSIDE RECORDS SUMMARY | 2021-03-25 19:14 | EXTERNAL MEDICAL SUMMARY RPT | Continuity of Care Document ---
:1985 Demographics Phone Unavailable Preferred Language Unknown Marital Status Unknown Holiness Affiliation Unknown Race Unknown Ethnic Group Unknown Author Organization [facility] Address [address] [phone] Phone Care Team Providers Name Role Phone Elva MARTINEZ Unavailable Unavailable Allergies Encounters Medications Problems date description facility [id number] Unspecified abdominal pain [facility] [phone] Tobacco smoking status [facility] [phone] Exercise [facility] [phone] Details of drug misuse behavior [facility] [phone] Acute abdominal pain [facility] [id number] Abdominal pain, unspecified site [facility] Results Vital Signs date measurement value source [id number] weight_standard 143.8 lb 20210325 weight_metric 65.23 kg 20210325 temperature_standard 98.2 F 20210325 temperature_metric 36.78 C 20210325 respiration_rate 14 /min 20210325 heart_rate 98 /min 12022118 heart_rate 76 /min 20210325 heart_rate 69 /min 04434324 heart_rate 63 /min 20210325 BP_systolic 99 mm[Hg] 36907051 BP_systolic 90 mm[Hg] 15167400 BP_systolic 102 mm[Hg] 72795244 BP_diastolic 72 mm[Hg] 23811722 BP_diastolic 70 mm[Hg] 56445744 BP_diastolic 63 mm[Hg]
[2021-03-25 19:28] LABS: BILIRUBIN,URINE NEGATIVE (NEGATIVE); GLUCOSE, URINE (UA) NEGATIVE (NEGATIVE); KETONES,URINE (UA) NEGATIVE (NEGATIVE); LEUKOCYTE ESTERASE, URINE NEGATIVE (NEGATIVE); NITRITE,URINE NEGATIVE (NEGATIVE); OCCULT BLOOD,URINE NEGATIVE (NEGATIVE); PROTEIN,URINE NEGATIVE (NEGATIVE); UROBILINOGEN,URINE 0.2 (NORMAL) E.U./dL (NORMAL)
[2021-03-25] MEDS ORDERED: HYDROmorphone 1 MG/ML CARPUJECT IVP STA (19:28)
[2021-03-25] MEDS ORDERED: ONDANSETRON 4 MG/2 ML VIAL IVP STA ×2 (19:28→22:17)
[2021-03-25] MEDS ORDERED: SODIUM CHLORIDE 0.9% 1,000 ML IV STA (19:28)
[2021-03-25 19:29] LABS: BASOPHILS % (AUTO) 0.3 %; EOSINOPHILS # (AUTO) 0.1 10^3/uL (0.0-0.7); EOSINOPHILS % (AUTO) 1.4 %; LYMPHOCYTES % (AUTO) 41.6 %; MEAN CORPUSCULAR HEMOGLOBIN 29.7 pg (27.0-31.0); MEAN CORPUSCULAR HGB CONC 32.6 g/dL (32.0-36.0); MEAN CORPUSCULAR VOLUME 91.1 fL (81.0-99.0); MONOCYTES # (AUTO) 0.5 10^3/uL (0.0-1.0); MONOCYTES % (AUTO) 6.4 %; NEUTROPHILS # (AUTO) 3.6 10^3/uL (1.5-6.6); NEUTROPHILS % (AUTO) 50.2 %; PLT - PLATELET COUNT 238 10^3/uL (130-450); RED BLOOD COUNT 4.72 10^6/uL (4.20-5.40); RED CELL DISTRIBUTION WIDTH 11.7 % (12.0-15.0); WHITE BLOOD COUNT 7.2 x10^3/uL (4.8-10.8)
[2021-03-25 19:31] LABS: CLARITY,URINE CLEAR (CLEAR); HCG UR QUAL NEGATIVE
[2021-03-25 19:44] LABS: ALBUMIN 4.6 g/dL (3.2-5.5); ALBUMIN/GLOBULIN RATIO 1.6 (1.0-2.2); BILIRUBIN,TOTAL 0.7 mg/dL (0.2-1.0); CALCIUM 9.7 mg/dL (8.5-10.3); CREATININE 0.8 mg/dL (0.4-1.0); POTASSIUM 3.4 mmol/L (3.5-5.0); TOTAL PROTEIN 7.4 g/dL (6.7-8.2)
[2021-03-25] MEDS ORDERED: LIDOCAINE VISCOUS 2% 15 ML UDC MM STA (19:50)
[2021-03-25] MEDS ORDERED: FAMOTIDINE 20 MG TABLET PO STA (19:50)
[2021-03-25] MEDS ORDERED: MAG HYDROX/AL HYDROX/SIMETH 30 ML UDC PO STA (19:50)
[2021-03-25] MEDS ORDERED: SUCRALFATE 1 GM/10 ML UDC PO STA (19:50)
--- NOTE | 2021-03-25 19:52 | ED Physician Documentation ---
PD HPI ABD PAIN - Stated complaint Stated Complaint: ABD PX - Chief complaint Chief Complaint: Abd Pain - History obtained from History obtained from: Patient - History of Present Illness Timing - onset: How many days ago (3) Timing - duration: Days (3) Timing - details: Gradual onset Pain level max: 9 Pain level now: 8 Quality: Aching, Pain Location: Epigastric Radiation: No: Chest, , Lower back, Left flank, Left shoulder, Right flank, Right shoulder, Upper back Improved by: Other (nothing) Worsened by: Eating Associated symptoms: Nausea. No: Fever, Vomiting, Hematemesis, Diarrhea, Constipation, Melena, Hematochezia, Dysuria, Hematuria - Additional information Additional information: Patient with epigastric pain for the past several days. worse with eating. Occasionally takes ibuprofen. Drinks several cups of black coffee daily. Patient was sent from the walk-in clinic for evaluation today. Has had emesis x1. No diarrhea. Occasional constipation. Review of Systems Constitutional: denies: Fever, Chills GI: denies: Diarrhea, Hematemesis, Bloody / black stool : denies: Dysuria, Frequency, Hesitancy, Now EGA Skin: denies: Rash Musculoskeletal: denies: Neck pain, Back pain Neurologic: denies: Headache PD PAST MEDICAL HISTORY - Past Medical History Cardiovascular: None Respiratory: None Endocrine/Autoimmune: None GI: Other : Frequency HEENT: Chronic vision loss Psych: Depression, Anxiety Musculoskeletal: Chronic back pain Derm: None - Past Surgical History Past Surgical History: Yes /[employer]NA[employer]: section - Present Medications Home Medications: Ambulatory Orders Medication Instructions Recorded Confirmed Esomeprazole Magnesium [Nexium] 40 mg PO DAILY #30 cap 03/25/21 Ondansetron Odt [Zofran] 4 mg TL Q6H PRN #10 tablet 03/25/21 Oxycodone HCl/Acetaminophen 1 - 2 each PO Q6H PRN #14 tablet 03/25/21 [Percocet 5-325 mg Tablet] Sucralfate [Carafate] 1 gm PO ACHS #60 tablet 03/25/21 - Allergies Allergies/Adverse Reactions: Allergies Allergy/AdvReac Type Severity Reaction Status Date / Time ketorolac tromethamine * Allergy Intermediate Itching Verified 03/25/21 19:15 [From Toradol] alcohol Allergy Respiratory Verified 03/25/21 19:15 codeine [Codeine] AdvReac Unknown Emesis Verified 03/25/21 19:15 - Social History Does the pt smoke?: No Smoking Status: Never smoker Does the pt drink ETOH?: No Does the pt have substance abuse?: No - Immunizations Immunizations are current?: Yes - POLST Patient has POLST: No PD ED PE NORMAL - Vitals Vital signs reviewed: Yes - General General: Alert and oriented X 3, No acute distress - HEENT HEENT: PERRL, Moist mucous membranes - Neck Neck: Supple, no meningeal sign - Cardiac Cardiac: RRR, Strong equal pulses - Respiratory Respiratory: No respiratory distress, Clear bilaterally - Abdomen Abdomen: Soft, Non distended, Other (TTP epigastric and RUQ pain, no peritoneal signs.) - Back Back: No CVA TTP, No spinal TTP - Derm Derm: Warm and dry - Extremities Extremities: No edema, No calf tenderness / cord - Neuro Neuro: Alert and oriented X 3 - Psych Psych: Normal mood, Normal affect Results - Vitals Vitals: Vital Signs - 24 hr 03/25/21 03/25/21 03/25/21 21:50 21:55 22:54 Temperature 36.6 C 36.6 C 36.5 C Heart Rate 55 L 57 L 75 Respiratory 16 16 16 Rate Blood Pressure 82/42 L 91/39 L 101/58 L O2 Saturation 100 100 99 Oxygen O2 Source Room air - Labs Labs: Laboratory Tests 03/25/21 03/25/21 03/25/21 19:20 19:25 19:25 WBC 7.2 RBC 4.72 Hgb 14.0 Hct 43.0 MCV 91.1 MCH 29.7 MCHC 32.6 RDW 11.7 L Plt Count 238 MPV 11.0 H Neut # (Auto) 3.6 Lymph # (Auto) 3.0 Yates # (Auto) 0.5 Eos # (Auto) 0.1 Baso # (Auto) 0.0 Absolute Nucleated RBC 0.00 Nucleated RBC % 0.0 Sodium 138 Potassium 3.4 L Chloride 99 L Carbon Dioxide 29 Anion Gap 10.0 BUN 13 Creatinine 0.8 Estimated GFR (MDRD) 82 L Glucose 86 Calcium 9.7 Total Bilirubin 0.7 AST 33 ALT 52 Alkaline Phosphatase 65 Total Protein 7.4 Albumin 4.6 Globulin 2.8 Albumin/Globulin Ratio 1.6 Triglycerides Cholesterol LDL Cholesterol, Calc VLDL Cholesterol HDL Cholesterol LDL/HDL Ratio Cholesterol/HDL Ratio Lipase 27 Urine Color YELLOW Urine Clarity CLEAR Urine pH 8.0 H Ur Specific [place] 1.020 Urine Protein NEGATIVE Urine Glucose (UA) NEGATIVE Urine Ketones NEGATIVE Urine Occult Blood NEGATIVE Urine Nitrite NEGATIVE Urine Bilirubin NEGATIVE Urine Urobilinogen 0.2 (NORMAL) Ur Leukocyte Esterase NEGATIVE Ur Microscopic Review NOT INDICATED Urine Culture Comments NOT INDICATED Urine HCG, Qual NEGATIVE 03/25/21 19:25 WBC RBC Hgb Hct MCV MCH MCHC RDW Plt Count MPV Neut # (Auto) Lymph # (Auto) Yates # (Auto) Eos # (Auto) Baso # (Auto) Absolute Nucleated RBC Nucleated RBC % Sodium Potassium Chloride Carbon Dioxide Anion Gap BUN Creatinine Estimated GFR (MDRD) Glucose Calcium Total Bilirubin AST ALT Alkaline Phosphatase Total Protein Albumin Globulin Albumin/Globulin Ratio Triglycerides 31 Cholesterol 180 LDL Cholesterol, Calc Not Reportable VLDL Cholesterol Not Reportable HDL Cholesterol 97 LDL/HDL Ratio Not Reportable Cholesterol/HDL Ratio 1.9 Lipase Urine Color Urine Clarity Urine pH Ur Specific [place] Urine Protein Urine Glucose (UA) Urine Ketones Urine Occult Blood Urine Nitrite Urine Bilirubin Urine Urobilinogen Ur Leukocyte Esterase Ur Microscopic Review Urine Culture Comments Urine HCG, Qual - Rads (name of study) RUQ abd US Radiology: Prelim report reviewed, EMP read contemporaneously, See rad report (Findings. Unchanged right liver calcification some compared to 12/30/2017 CT. No findings of cholecystitis or cholelithiasis. No biliary ductal dilatation.) CT abd/pelvis Radiology: Prelim report reviewed, EMP read contemporaneously, See rad report (Distal gastric thickening with mild mucosal edema suggesting gastritis. Nonspecific liver calcifications are unchanged from comparison study.) PD MEDICAL DECISION MAKING - ED course Complexity details: reviewed results, re-evaluated patient, considered differential, d/w patient, d/w family ED course: Well controlled in the emergency department. Patient is well-appearing, nontoxic. Afebrile. Ultrasound does not show any acute abnormalities. Her CT scan shows likely gastritis. No evidence of pancreatitis. No evidence of biliary disease. Feels better after GI cocktail and pain meds. Will place on PPIs for home. Will limit coffee consumption. Patient counseled regarding signs and symptoms for which I believe and urgent re-evaluation would be necessary. Patient with good understanding of and agreement to plan and is comfortable going home at this time This document was made in part using voice recognition software. While efforts are made to proofread this document, sound alike and grammatical errors may occur. Departure - Departure Disposition: 01 Home, Self Care Clinical Impression: Gastritis Qualifiers: Gastritis type: unspecified gastritis Chronicity: acute Gastritis bleeding: without bleeding Qualified Code(s): K29.00 - Acute gastritis without bleeding Condition: Good Instructions: ED PUD Vs Gastritis Follow-Up: Elva Mendoza PA-C [Primary Care Provider] - Within 1 week Prescriptions: Sucralfate [Carafate] 1 gm PO ACHS #60 tablet Esomeprazole Magnesium [Nexium] 40 mg PO DAILY #30 cap Oxycodone HCl/Acetaminophen [Percocet 5-325 mg Tablet] 1 - 2 each PO Q6H PRN #14 tablet PRN Reason: pain Ondansetron Odt [Zofran] 4 mg TL Q6H PRN #10 tablet PRN Reason: Nausea / Vomiting Comments: Follow up with your doctor for further care. Return if you worsen. You may need an endoscopy as well for visualization of your stomach. The skin the scheduled with your doctor. Avoid fried foods, spicy foods, caffeine, energy drinks, coffee, NSAIDs such as ibuprofen and Aleve. I am prescribing a short course of narcotic pain medication for you. These are potentially dangerous and addictive medications that should be used carefully. These medications may constipate you. Take an oxxa-qge-[id number] stool softener (docusate) twice daily with plenty of water while taking these medications. If you go 24 hours without a bowel movement, take [id number] miralax, per package instructions. Do not drink or drive while taking these medications. If you received narcotic or sedating medications while in the emergency department, do not drive for 24 hours. Store this medication in a safe, secure place and out of reach of children. It is a violation of federal law to give or sell this medication to another person or to use in a manner other than prescribed. The ED will not refill narcotic prescriptions, including prescriptions lost or stolen. To dispose of unwanted medications: 1. [facility] [address] [facility] [place] has a medication drop box. They accept prescription medications (in pill form) Tuesday through Tuesday 9:00 a.m. to 5:00 p.m. 2. [facility] [employer] accepts prescription medications (in pill form only) for disposal year round. Call for more information. 3. Contact the [facility] for the next [facility] sponsored prescription dr rae collection event. , [phone], or [phone]; Discharge Date/Time: 03/25/21 22:54
--- NOTE | 2021-03-25 21:14 | Ultrasound Report ---
PROCEDURE: Abdomen Limited INDICATIONS: RUQ abd pain TECHNIQUE: Real-time focused scanning was performed of the abdomen, with image documentation. COMPARISON: 12/30/2017 CT abdomen and pelvis FINDINGS: Calcification in the right hepatic lobe similar to the prior study. Otherwise normal appea rosanna of the liver. Normally distended gallbladder without proptosis of fluid, wall thickening, sludg e, or gallstone. No intrahepatic or extra hepatic biliary duct. Poor visualization of the pancreas, w ithin normal limits. Right kidney unremarkable. IMPRESSION: No acute finding. Unchanged right liver calcifications when compared with 12/30/2017 CT. No findings of cholecystitis or cholelithiasis. No biliary ductal dilatation. Reviewed by: Mesfin Adams MD on 03/25/2021 9:12 PM PDT Approved by: Mesfin Adams MD on 03/25/2021 9:12 PM PDT Station ID: [id number]
[2021-03-25] MEDS ORDERED: IOVERSOL 320 100 ML VIAL IVP ONE ×2 (21:15→21:35)
--- NOTE | 2021-03-25 21:41 | CT Report ---
PROCEDURE: Abdomen/Pelvis W INDICATIONS: Abdominal pain, nausea CONTRAST: IV CONTRAST: Optiray 320 ml: 100 PO CONTRAST: *NO PO CONTRAST TECHNIQUE: After the administration of intravenous contrast, 5 mm thick sections acquired from the diaphragms to the symphysis. 5 mm thick coronal and sagittal reformats were acquired. For radiation dose reducti on, the following was used: automated exposure control, adjustment of mA and/or kV according to margot ent size. COMPARISON: 12/30/2017 FINDINGS: Image quality: Excellent. ABDOMEN: Lung bases: Lung bases are clear. Heart size is normal. Solid organs: Nonspecific liver calcifications are unchanged from the 2018 comparison. Liver and spl een are normal in size and enhancement. Gallbladder appears normally distended without wall thickeni ng or adjacent inflammatory change. Biliary system is non dilated. Pancreas enhances normally. No adrenal nodules. Kidneys demonstrate normal size and enhancement, without hydronephrosis. Peritoneum and bowel: Normal appendix. No abnormally dilated or thickened loop of bowel. No pericolon ic or mesenteric inflammatory change. No free fluid or pneumoperitoneum. There is some thickening of the distal gastric wall with submucosal edema, nonspecific. Nodes and vessels: No retroperitoneal or mesenteric adenopathy by size criteria. Aorta and inferior vena cava are normal in size. Miscellaneous: No ventral hernias. PELVIS: Genitourinary: Bladder wall thickness is normal. Small volume free pelvic fluid is within physiolog ic normal limits. The uterus and ovaries have a normal CT appearance. Miscellaneous: No inguinal hernias or adenopathy. Bones: No suspicious bony lesions. No vertebral body compression fractures. IMPRESSION: Distal gastric thickening with mild some mucosal edema suggesting gastritis. Nonspecific liver calcifications are unchanged from comparison study obtained 12/30/2017, likely a tresa ign sequela of remote infection or trauma. Reviewed by: Mesfin Adams MD on 03/25/2021 9:39 PM PDT Approved by: Mesfin Adams MD on 03/25/2021 9:39 PM PDT Station ID: [id number]
[2021-03-25 21:53] LABS: CHOL/HDL RATIO 1.9 (<4.4); CHOLESTEROL 180 mg/dL; HDL CHOLESTEROL 97 mg/dL; TRIGLYCERIDES 31 mg/dL
[2021-03-25] MEDS ORDERED: PANTOPRAZOLE 40 MG VIAL IVP STA (22:17)
[2021-03-25] MEDS ORDERED: oxyCODONE 5 MG TABLET PO STA (22:17)
[2021-03-25 22:55] VITALS: BP 101/58
== END 2021-03-25 22:54 | disposition home or self-care (01) ==
LOC: ED 19:02
DX: K29.00 Acute gastritis without bleeding (principal)
CPT/HCPCS: 36415; 74177; 76705; 80053; 80061; 81003; 81025; 83690; 85025; 96374; 96375; 96376; 99284; A9270; J1170; Q9967; 81001; 83721; 87086

== ENCOUNTER 2021-08-20 08:00 | Outpatient (CLI) | payer SELFPAY | END 2021-08-20 23:59 | disposition home or self-care (01) | LOC: LAB.S 08:00 | PROVIDERS: ATTEND Physician Assistant | DX: R05.9 Cough, unspecified (principal); J06.9 Acute upper respiratory infection, unspecified; Z20.822 Contact with and (suspected) exposure to COVID-19 ==

== ENCOUNTER 2023-09-03 08:00 | Outpatient (CLI) | payer SELFPAY ==
--- NOTE | 2023-09-03 15:10 | XRAY Report ---
PROCEDURE: Abdomen 1 View X-Ray INDICATIONS: HEMATURIA TECHNIQUE: One view of the abdomen acquired. COMPARISON: None. FINDINGS: Surgical changes and devices: None. Bowel: Bowel gas pattern is normal. Soft tissues: Calcifications overlie the liver consistent with known calcifications. No suspicious ca lcifications of the renal shadows. Visualized solid organ contours appear normal in size. Bones: No suspicious bony lesions. IMPRESSION: Nonspecific hepatic calcifications appear unchanged. No evidence of nephrolithiasis. Reviewed by: Gabino Adams MD on 09/03/2023 2:09 PM [place] Approved by: Gabino Adams MD on 09/03/2023 2:09 PM [place] Station ID: [id number]
== END 2023-09-03 23:59 | disposition home or self-care (01) ==
LOC: DI.S 08:00
PROVIDERS: ATTEND Emergency Medicine
DX: R31.0 Gross hematuria (principal); K76.89 Other specified diseases of liver